=== PATIENT | female | born 1970 | race Caucasian/White ===

== ENCOUNTER 2017-03-25 15:13 | Emergency (ER) | payer BC ==
[~2017-03-25] VITALS: Wt 73.2 kg
[~2017-03-25 15:13] MED LIST: CIPR500T4 PO; HYDR-3498 PO; LEVO50TA71; METR500T14 PO
--- NOTE | 2017-03-25 15:44 | ERD ---
ER Documentation Chief Complaint Chief Complaint back pain HPI 46-year-old female presents to the emergency department with right-sided upper back pain that started yesterday after leaving work. 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 The pain is achy , worse with movement and it is in the upper back just below her shoulder, and it radiates to her right shoulder as well. She denies any chest pain, shortness breath, cough. She denies abdominal pain, nausea, vomiting, diarrhea , fevers or chills. ROS All systems reviewed and are negative except as per history of present illness. Medications Home Meds Active Scripts Metronidazole (Flagyl) 500 Mg Tab, 500 MG PO Q8 for 7 Days, TAB Prov:Joaquin DOEMARCO ANTONIOCAMILO Borges 08/30/15 Hydrocodone Bit/Acetaminophen (Anexsia 5-325 Mg Tablet) 1 Tab Tab, 2 TAB PO Q4 Y for PAIN LEVEL 4-7, #30 TAB Prov:NADERKehindeQuitaMARCO ANTONIOCAMILO Borges 08/30/15 Ciprofloxacin Hcl* (Ciprofloxacin Hcl*) 500 Mg Tablet, 500 MG PO BID for 7 Days , TAB Prov:ABDIRAHMAN DOE 08/30/15 Reported Medications Levothyroxine Sodium* (Levoxyl*) 50 Mcg Tablet, daily 04/15/13 Allergies Allergies: Coded Allergies: amoxicillin (Verified Allergy, Unknown, 08/29/15) PMhx/Soc History of Surgery: Yes Anesthesia Reaction: No Hx Neurological Disorder: No Hx Respiratory Disorders: Yes (asthma as a child) Hx Cardiac Disorders: No Hx Psychiatric Problems: No Hx Miscellaneous Medical Probl: No Hx Alcohol Use: No Hx Substance Use: No Hx Tobacco Use: Yes Smoking Status: Current some day smoker Physical Exam Vitals Vital Signs Date Time Temp Pulse Resp B/P Pulse Ox O2 Delivery O2 Flow Rate FiO2 03/25/17 15:16 99.2 58 20 140/78 99 Physical Exam General: Well-developed, well-nourished. The patient appears in no acute distress. HEENT: Head is normocephalic, atraumatic. No scleral icterus. Neck: Supple. Nontender. Lungs: Clear to auscultation. Normal air movement. Heart: Regular rate and rhythm. S1 and S2 are normal. No murmurs, gallops, or rubs. Abdomen: Nondistended. Nontender, no masses, negative Larsen sign. Extremities: Right shoulder has full range of motion, no bony deformities, muscular tenderness just above the scapula, there is no wheezing. No swelling, no rashes. Neurologic: Alert and oriented 3. No focal deficits. Normal speech and gait. Skin: Normal turgor. No rash or lesions. Procedures/MDM 46-year-old female presents with right upper back pain, most consistent with a muscle strain. She has a history of pushing a patient, and presents with pain that is reproducible with palpation as well as movement. There are no bony deformities, and there is no bony tenderness. Additionally there is no rash, no signs of zoster. She does not have any abdominal pain associated with this, I doubt acute cholecystitis, dissection, pulmonary embolus. Departure Diagnosis: Primary Impression: Strain of back Condition: Good Patient Instructions: Muscle Strain, Extremity ABHINAV POON PA-C Mar 25, 2017 15:44
== END 2017-03-25 16:01 | disposition home or self-care (01) ==
LOC: FTE 15:13
DX: S29.012A Strain of muscle and tendon of back wall of thorax, initial encounter (principal); F17.210 Nicotine dependence, cigarettes, uncomplicated; X58.XXXA Exposure to other specified factors, initial encounter; Y92.9 Unspecified place or not applicable
CPT/HCPCS: 99282

== ENCOUNTER 2017-09-23 08:28 | Emergency (ER) | END 2017-09-23 10:10 | disposition home or self-care (01) ==

== ENCOUNTER 2018-08-17 13:58 | Emergency (ER) | payer BC, OTHER ==
[~2018-08-17] VITALS: Ht 162.6 cm; Wt 71.6 kg
[~2018-08-17 13:58] MED LIST changes: +ALBU8.5H8 INH; +AZIT250T PO; +BENZ-6 PO; +METR-121 PO; -METR500T14 PO
[2018-08-17 14:11] VITALS: BP 128/67; PULSE 58; RESP 20; Ht 162.6 cm; Wt 71.6 kg
[2018-08-17] MEDS ORDERED: ALBU18HF INHALATION (14:38)
[2018-08-17] MEDS ORDERED: AZIT250T PO (14:38)
[2018-08-17] MEDS ORDERED: BENZ-6 PO (14:38)
--- NOTE | 2018-08-17 14:41 | ERD ---
ER Documentation Chief Complaint Chief Complaint x1 month with cwp exacerbated by coughing. Hx: Bronchitis, childhood asthm HPI 47-year-old female patient with a past medical history of childhood asthma, hypothyroidism presents the ED complaining of a dry cough that she has had for 1 month. States that she has tried taking Robitussin, NyQuil, DayQuil and drink some honey lemon tea which has not helped with her symptoms. Denies any recent traveling. Denies any fever, chills, body aches, hemoptysis, abdominal pain, chest pain, shortness of breath, dyspnea on exertion. ROS All systems reviewed and are negative except as per history of present illness. Medications Home Meds Active Scripts Azithromycin* (Zithromax*) 250 Mg Tablet, 250 MG PO .NicolaPATOMAS DIRECTED, #6 TAB TAKE 500 MG (2 TABS) THE FIRST DAY THEN 250 MG (1 TAB) DAYS 2-5 Prov:SALAZAR GARCIA PA-C 08/17/18 Albuterol Sulfate* (Ventolin HFA*) 18 Gm Hfa.aer.ad, 2 PUFF INHALATION Q4H, #1 INHALER Prov:SALAZAR GARCIA PA-C 08/17/18 Benzonatate* (Tessalon Perle*) 100 Mg Capsule, 100 MG PO Q8H PRN for COUGH, #20 CAP Prov:SALAZAR GARCIA PA-C 08/17/18 Albuterol Sulfate* (Proair HFA*) 8.5 Gm Hfa.aer.ad, 2 PUFF INH Q6, #1 INHALER Prov:SALAZAR GARCIA PA-C 09/23/17 Benzonatate* (Tessalon Perle*) 100 Mg Capsule, 100 MG PO Q8H PRN for COUGH, #20 CAP Prov:SALAZAR GARCIA PA-C 09/23/17 Azithromycin* (Zithromax*) 250 Mg Tablet, 250 MG PO .NicolaPATOMAS DIRECTED, #6 TAB TAKE 500 MG (2 TABS) THE FIRST DAY THEN 250 MG (1 TAB) DAYS 2-5 Prov:SALAZAR GARCIA PA-C 09/23/17 Metronidazole (Flagyl) 500 Mg Tab, 500 MG PO Q8 for 7 Days, TAB Prov:ABDIRAHMAN DOE 4/19/16 Hydrocodone Bit/Acetaminophen (Anexsia 5-325 Mg Tablet) 1 Tab Tab, 2 TAB PO Q4 PRN for PAIN LEVEL 4-7, #30 TAB Prov:ABDIRAHMAN DOE 08/30/15 Ciprofloxacin Hcl* (Ciprofloxacin Hcl*) 500 Mg Tablet, 500 MG PO BID for 7 Days, TAB Prov:ABDIRAHMAN DOE 08/30/15 Reported Medications Levothyroxine Sodium* (Levoxyl*) 50 Mcg Tablet, daily 04/15/13 Allergies Allergies: Coded Allergies: amoxicillin (Verified Allergy, Unknown, 08/29/15) PMhx/Soc History of Surgery: Yes (,appendectomy) Anesthesia Reaction: No Hx Neurological Disorder: No Hx Respiratory Disorders: Yes (asthma as a child) Hx Cardiac Disorders: No Hx Psychiatric Problems: No Hx Miscellaneous Medical Probl: No (hypothyroidism) Hx Alcohol Use: No Hx Substance Use: No Hx Tobacco Use: No FmHx Family History: No diabetes, No coronary disease Physical Exam Vitals Vital Signs Date Temp Pulse Resp B/P (MAP) Pulse Ox O2 O2 Flow FiO2 Time Delivery Rate 08/17/18 98.1 58 20 128/67 100 14:11 (87) Physical Exam Const: [id number], well-nourished. In no acute distress. Head: Atraumatic, normocephalic Eyes: Normal Conjunctiva without injection. No purulent discharge. PERRL. EOMI ENT: Normal external ear. Ear canal without erythema. Tympanic membrane pearly penn without effusion or bulging. Nasal canal clear with normal turbinates. Moist oropharynx without tonsillar exudates. Non-erythematous pharynx. Uvula midline. No drooling. No trismus. Neck: Full range of motion. No meningismus. No cervical lymphadenopathy. Resp: Clear to auscultation bilaterally. No wheezing, rhonchi, rales, or crackles. No accessory muscle use. No retractions. Cardio: Regular rate and rhythm. No murmurs, rubs or gallops. Abd: Soft, non tender, non distended. Normal bowel sounds. No palpable masses. No rebound tenderness. No guarding. Skin: No petechiae or rashes Back: No midline tenderness. No CVA tenderness. Ext: No cyanosis, or edema. Neur: Awake and alert. Psych: Normal Mood and Affect Procedures/MDM 47-year-old female patient with a past medical history of hypothyroidism, childhood asthma presents to the ED complaining of a cough that started 1 day. Patient is afebrile and nontoxic-appearing. This patient presents to the ED with symptoms consistent bronchitis. Patient will be covered for bacterial etiology. Patient's physical exam include lungs which were clear to auscultation and a normal pulse oximetry. There is a low suspicion for pneumonia, pneumothorax, mononucleosis, pulmonary embolism, epiglottitis, otitis media, otitis externa, viral/strep pharyngitis, sinusitis, myocarditis, pericarditis, endocarditis, peritonsillar abscess, mastoiditis, retropharyngeal abscess, meningitis, sepsis, acute abdomen or other emergent conditions. Fluids, rest, and symptomatic treatment are recommended for the management of patient's symptoms. Diagnosis: Cough Discharge medications: Zithromax, Ventolin, Tessalon Perles Patient was instructed to return to the ED for any new or worsening symptoms. They should otherwise follow up with the primary care provider within 2-3 days. The patient's questions were answered at the time of discharge. Patient understood and agreed with discharge management. Disclaimer: Inadvertent spelling and grammatical errors are likely due to EHR/dictation software use and do not reflect on the overall quality of patient care. Also, please note that the electronic time recorded on this note does not necessarily reflect the actual time of the patient encounter. Departure Diagnosis: Primary Impression: Cough Condition: Stable Patient Instructions: Bronchitis, Antiobiotic Treatment (Adult) Referrals: [facility] YOU HAVE RECEIVED A MEDICAL SCREENING EXAM AND THE RESULTS INDICATE THAT YOU DO NOT HAVE A CONDITION THAT REQUIRES URGENT TREATMENT IN THE EMERGENCY DEPARTMENT. FURTHER EVALUATION AND TREATMENT OF YOUR CONDITION CAN WAIT UNTIL YOU ARE SEEN IN YOUR DOCTORS OFFICE WITHIN THE NEXT 1-2 DAYS. IT IS YOUR RESPONSIBILITY TO MAKE AN APPOINTMENT FOR FOLOW-UP CARE. IF YOU HAVE A PRIMARY DOCTOR --you should call your primary doctor and schedule an appointment IF YOU DO NOT HAVE A PRIMARY DOCTOR YOU CAN CALL OUR PHYSICIAN REFERRAL HOTLINE AT IF YOU CAN NOT AFFORD TO SEE A PHYSICIAN YOU CAN CHOSE FROM THE FOLLOWING [facility] [address] [facility]. [facility] [address] [facility] [facility] [address] [facility] [address] [facility] [address] [facility]. [facility]. [address] [facility]. [facility] YOU HAVE RECEIVED A MEDICAL SCREENING EXAM AND THE RESULTS INDICATE THAT YOU DO NOT HAVE A CONDITION THAT REQUIRES URGENT TREATMENT IN THE EMERGENCY DEPARTMENT. FURTHER EVALUATION AND TREATMENT OF YOUR CONDITION CAN WAIT UNTIL YOU ARE SEEN IN YOUR DOCTORS OFFICE WITHIN THE NEXT 1-2 DAYS. IT IS YOUR RESPONSIBILITY TO MAKE AN APPOINTMENT FOR FOLOW-UP CARE. IF YOU HAVE A PRIMARY DOCTOR --you should call your primary doctor and schedule and appointment IF YOU DO NOT HAVE A PRIMARY DOCTOR YOU CAN CALL OUR PHYSICIAN REFERRAL HOTLINE AT . IF YOU CAN NOT AFFORD TO SEE A PHYSICIAN YOU CAN CHOSE FROM THE FOLLOWING [facility] INSTITUTIONS: [facility] [address] [place] [address] [facility] [address] [place] [address] [facility] [address] [place] [address] [facility] URGENT CARE/SPECIALTIES Additional Instructions: Call your primary care doctor TOMORROW for an appointment during the next 2-3 days.See the doctor sooner or return here if your condition worsens before your appointment time. SALAZAR GARCIA PA-C Aug 17, 2018 14:41 ZIYAD MOSES MD Aug 17, 2018 16:00
== END 2018-08-17 14:53 | disposition home or self-care (01) ==
LOC: FTE 13:58
DX: R05 Cough (principal); E03.9 Hypothyroidism, unspecified; J45.909 Unspecified asthma, uncomplicated
CPT/HCPCS: 99283